=== PATIENT | female | born 1990 | race Caucasian/White ===

== ENCOUNTER 2016-08-09 05:54 | Inpatient (IN) | payer OTHER ==
[2016-08-09] VITALS (14 sets, daily range): BP systolic 103–132; BP diastolic 53–63; PULSE 83–142; RESP 16–22; TEMP 98.3–98.9; O2SAT 97–100
[~2016-08-09] VITALS: Ht 172.7 cm; Wt 61.7 kg
[2016-08-09] MEDS ORDERED: SODIUM CHLOR 0.9% 1000 ML INJ 1,000 ML IV SCH (06:04)
[2016-08-09] MEDS ORDERED: SODIUM BICARBONATE 8.4% SOLN 50 MEQ/50 ML VIAL IV PRN ×2 (06:15)
[2016-08-09] MEDS ORDERED: SODIUM PHOSPHATE INJ 15 MMOL in SODIUM CHLORIDE 0.9% INJ 100 ML IV PRN (06:15)
[2016-08-09] MEDS ORDERED: INSULIN REGULAR (IV INFUSION) 100 UNITS in SODIUM CHLORIDE 0.9% INJ 99 ML IV SCH (06:15)
[2016-08-09] MEDS ORDERED: POTASSIUM CHLOR 20 MEQ PREMIX 100 ML IV PRN ×6 (06:15→09:45)
[2016-08-09] MEDS ORDERED: ONDANSETRON HCL 4 MG/2 ML VIAL ONE (06:21)
[2016-08-09] MEDS: SODIUM CHLOR 0.9% 1000 ML INJ 1,000 ML IV SCH ×2 (06:27→15:26)
[2016-08-09 07:18] LABS: BLOOD GAS VENOUS BASE EXCESS -21.8 mmol/L (-2-2); BLOOD GAS VENOUS HCO3 6 mmol/L (22-26); BLOOD GAS VENOUS O2 CONTENT 13.8 Vol % (9.0-17.0); BLOOD GAS VENOUS O2 HGB SAT 80 % (70-76); BLOOD GAS VENOUS PCO2 21 mmHg (44-48); BLOOD GAS VENOUS PO2 59 mmHg (35-40); TEMP CORR TO 98.6
[2016-08-09 07:19] LABS: CRITICAL VALUE YES; DRAW SITE CL; OXYGEN DEVICE RA; STAT YES
--- NOTE | 2016-08-09 07:38 | RADRPT ---
EXAM DATE/TIME: 08/09/2016 07:06 [place] COMPARISON: No previous studies available for comparison. INDICATIONS : Chest pain. MEDICAL HISTORY : Diabetes mellitus type II. asthma SURGICAL HISTORY : None. ENCOUNTER: Initial ACUITY: 1 day PAIN SCORE: 2/10 LOCATION: Bilateral chest FINDINGS: Single AP view of the chest. Right IJ central venous catheter is in place with the tip in the region of the mid SVC. The lungs are clear. Cardiomediastinal silhouette within normal limits. No evidence o f pleural effusion or pneumothorax. CONCLUSION: No acute cardiopulmonary disease identified. Carlos Mccarthy MD on August 09, 2016 at 7:35 Board Certified Radiologist. This report was verified electronically.
[2016-08-09 07:50] LABS: ALKALINE PHOSPHATASE 68 U/L (45-117); ALT (GPT) 20 U/L (10-53); ANION GAP 22 MEQ/L (5-15); AST (GOT) 9 U/L (15-37); BETA-HYDROXYBUTYRATE 7.19 MMOL/L (0.00-0.39); BICARBONATE 7.3 MEQ/L (21.0-32.0); BLOOD UREA NITROGEN 23 MG/DL (7-18); CHLORIDE 110 MEQ/L (98-107); GLOMERULAR FILTRATION RATE 75 ML/MIN (>89); MAGNESIUM 2.1 MG/DL (1.5-2.5); POTASSIUM 4.9 MEQ/L (3.5-5.1); SODIUM (NA) 139 MEQ/L (136-145); TOTAL BILIRUBIN ADULT 0.7 MG/DL (0.2-1.0)
--- NOTE | 2016-08-09 08:04 | PD ---
HPI Chief Complaint: Diabetic Time Seen by Provider: 07:36 Travel History International Travel<30 days: No Contact w/Intl Traveler<30days: No Traveled to known affect area: No History of Present Illness HPI Patient 25-year-old insulin-dependent diabetic presents emergency Department with aching all over her body as well as dehydration. Patient states it feels just like every other time she's been in DKA. Patient states that she was actually just released from another institution in DKA. Patient states she has had problems with her insulin pump recently and has been malfunctioning. She states she is in between endocrinologists right now. She states the symptoms started very abruptly at about 1:00 this morning. She denies any fevers chest pain abdominal pain vaginal bleeding vaginal discharge rash cough or congestion. PFSH Past Medical History Diabetes: Yes Patient Takes Glucophage: No Respiratory: Yes (ASTHMA) Tetanus Vaccination: > 5 Years ?: Not LMP: 02/2016..depo : 1 Para: 1 Past Surgical History Section: Yes Social History Alcohol Use: Yes (rarely) Tobacco Use: No Substance Use: No Allergies-Medications (Allergen,Severity, Reaction): Coded Allergies: No Known Allergies (Unverified , 08/09/16) Reported Meds & Prescriptions Reported Meds & Active Scripts Active Review of Systems Except as stated in HPI: all other systems reviewed are Neg Physical Exam Narrative GENERAL: Well-developed, thin, muñoz and ashen appears quite dehydrated. SKIN: Focused skin assessment warm/dry. Decreased skin turgor. HEAD: Atraumatic. Normocephalic. EYES: Pupils equal and round. No scleral icterus. No injection or drainage. ENT: No nasal bleeding or discharge. Mucous membranes pink and dry.. NECK: Trachea midline. No JVD. CARDIOVASCULAR: Tachycardia with regular rhythm.. No murmur appreciated. RESPIRATORY: No accessory muscle use. Clear to auscultation. Breath sounds equal bilaterally. GASTROINTESTINAL: Abdomen soft, non-tender, nondistended. Hepatic and splenic margins not palpable. MUSCULOSKELETAL: No obvious deformities. No clubbing. No cyanosis. No edema. NEUROLOGICAL: Awake and alert. No obvious cranial nerve deficits. Motor grossly within normal limits. Normal speech. PSYCHIATRIC: Appropriate mood and affect; insight and judgment normal. Data Data Last Documented VS Vital Signs Date Time Temp Pulse Resp B/P Pulse Ox O2 Delivery O2 Flow Rate FiO2 08/09/16 07:30 111 125/57 100 Room Air 08/09/16 05:57 98.9 22 Orders Assembly Detailer / Telemetry [email or web address].[id number] (08/09/16 06:04) ^ Insert Iv (08/09/16 06:04) Diet Npo (08/09/16 Breakfast) Lipase (08/09/16 06:04) Complete Blood Count With Diff (08/09/16 06:04) Comprehensive Metabolic Panel (08/09/16 06:04) Magnesium (Mg) (08/09/16 06:04) Phosphorus (Po4) (08/09/16 06:04) Beta Hydroxybutyrate (Acetone) (08/09/16 06:04) Sodium Chlor 0.9% 1000 Ml Inj (Ns 1000 M (08/09/16 06:04) Sodium Chlor 0.9% 1000 Ml Inj (Ns 1000 M (08/09/16 06:04) Dext 5%-Nacl 0.9% 1000 Ml Inj (D5w-Ns 10 (08/09/16 06:04) Insulin Regular (Iv Infusion) (Novolin R (08/09/16 06:15) Potassium Chlor 20 Meq Premix (Kcl 20 Me (08/09/16 06:15) Potassium Chlor 20 Meq Premix (Kcl 20 Me (08/09/16 06:15) Potassium Chlor 20 Meq Premix (Kcl 20 Me (08/09/16 06:15) Potassium Chlor 20 Meq Premix (Kcl 20 Me (08/09/16 06:15) Sodium Bicarbonate 8.4% Inj (Sodium Bica (08/09/16 06:15) Sodium Bicarbonate 8.4% Inj (Sodium Bica (08/09/16 06:15) Sodium Phosphate Inj (Sodium Phosphate I (08/09/16 06:15) Hemoglobin (Hgb) A1c (08/09/16 06:04) Urinalysis - C+S If Indicated (08/09/16 06:04) Basic Metabolic Panel (Bmp) (08/09/16 11:04) Basic Metabolic Panel (Bmp) (08/09/16 17:04) Basic Metabolic Panel (Bmp) (08/09/16 23:04) Basic Metabolic Panel (Bmp) (08/10/16 05:04) Magnesium (Mg) (08/09/16 11:04) Magnesium (Mg) (08/09/16 17:04) Magnesium (Mg) (08/09/16 23:04) Magnesium (Mg) (08/10/16 05:04) Phosphorus (Po4) (08/09/16 11:04) Phosphorus (Po4) (08/09/16 17:04) Phosphorus (Po4) (08/09/16 23:04) Phosphorus (Po4) (08/10/16 05:04) Beta Hydroxybutyrate (Acetone) (08/09/16 17:04) Beta Hydroxybutyrate (Acetone) (08/10/16 05:04) Chest, Single Ap (08/09/16 ) Ondansetron Inj (Zofran Inj) (08/09/16 06:21) Blood Culture (08/09/16 07:05) Lactic Acid (08/09/16 07:05) Blood Gas Venous (Vbg) (08/09/16 07:08) Labs Laboratory Tests Test 08/09/16 08/09/16 06:55 07:08 Sodium Level 139 MEQ/L Potassium Level 4.9 MEQ/L Chloride Level 110 MEQ/L Carbon Dioxide Level 7.3 MEQ/L Anion Gap 22 MEQ/L Blood Urea Nitrogen 23 MG/DL Creatinine 0.93 MG/DL Estimat Glomerular Filtration 75 ML/MIN Rate Random Glucose 470 MG/DL Calcium Level 8.6 MG/DL Phosphorus Level 4.3 MG/DL Magnesium Level 2.1 MG/DL Total Bilirubin 0.7 MG/DL Aspartate Amino Transf 9 U/L (AST/SGOT) Alanine Aminotransferase 20 U/L (ALT/SGPT) Alkaline Phosphatase 68 U/L Total Protein 6.6 GM/DL Albumin 4.0 GM/DL Lipase 61 U/L B-Hydroxybutyrate 7.19 MMOL/L Blood Gas Puncture Site CL Blood Gas Patient Temperature 98.6 Venous Blood pH 7.10 Venous Blood Partial Pressure 21 mmHg CO2 Venous Blood Partial Pressure 59 mmHg O2 Venous Blood HCO3 6 mmol/L Venous Blood Oxygen Saturation 80 % Venous Blood Oxygen Content 13.8 Vol % Venous Blood Base Excess -21.8 mmol/L Oxygen Delivery Device RA FONTANA Medical Decision Making Medical Screen Exam Complete: Yes Emergency Medical Condition: Yes Differential Diagnosis DKA, electrolyte abnormality, dehydration, infection unlikely, Narrative Course Patient roomed in the emergency department, IV axis is gravely difficult as the patient is extremely dehydrated. An ultrasound-guided 20-gauge was started and the left before meals by me. No further axis was able to be obtained including EJ. Given the patient's ill appearance, she was verbally consented for a right IJ. This was placed by me. This was a difficult placement secondary to the patient's dehydration. 2 L normal saline bolus is in progress to the left before meals as IJ is started. ABG was obtained which shows a pH is 7.0 with a bicarbonate of 6. I have a strong suspicion for DKA in this patient. There is no history suggestive secondary cause other than insulin withdrawal. She will ultimately be admitted to the hospital. The remainder of her labs are pending at this time. The DKA protocol have been ordered. Patient was discussed with Dr. Sebas Diez at 07 100 shift change to follow-up labs and disposition properly. Diagnosis Primary Impression: DKA (diabetic ketoacidoses) Qualified Code: E10.10 - Diabetic ketoacidosis without coma associated with type 1 diabetes mellitus Admitting Information Admitting Physician Requests: Admit Condition: Critical Fahad Smith MD Aug 09, 2016 08:04
[2016-08-09 08:14] LABS: AUTOMATED NEUTROPHIL # 24.7 TH/MM3 (1.8-7.7); BASOPHIL # 0.1 TH/MM3 (0-0.2); BASOPHIL % 0.3 % (0.0-2.0); HEMATOCRIT 39.4 % (35.0-46.0); HEMO FLAGS DIFF FINAL; LYMPHOCYTE # 1.1 TH/MM3 (1.0-4.8); MEAN CELL VOLUME 91.5 FL (80.0-100.0); MEAN CORPUSCULAR HEMOGLOBIN 30.2 PG (27.0-34.0); MONO % 5.2 % (0.0-8.0); NEUT % 90.5 % (16.0-70.0); PLATELET COUNT 331 TH/MM3 (150-450); RED CELL DISTRIBUTION WIDTH 13.3 % (11.6-17.2); WHITE BLOOD COUNT 27.3 TH/MM3 (4.0-11.0)
[2016-08-09] MEDS ORDERED: INSULIN HUMAN REGULAR 1,000 UNITS/10 ML VIAL IV PUSH ONE (08:30)
--- NOTE | 2016-08-09 08:52 | PD ---
Physical Exam Date Seen by Provider: Aug 09, 2016 Time Seen by Provider: 07:30 Narrative She was signed out to me at [address] Smith. We are waiting laboratory tests. The patient is a known instrumented diabetic and presents in diabetic ketoacidosis. Protocol was initiated by Dr. Smith. We're awaiting laboratory tests. White blood cell count comes back at 27,000. Carbon dioxide was 7.3. Blood gas showed a pH 7.06. Anion gap was 22. I did write for the initial insolent bolus of 6 units I V times one dose. Case was discussed with Dr. Charles Treadwell, on-call service center supervisor, who will admit the patient under his service. Data Data Last Documented VS Vital Signs Date Time Temp Pulse Resp B/P Pulse Ox O2 Delivery O2 Flow Rate FiO2 08/09/16 07:30 111 125/57 100 Room Air 08/09/16 05:57 98.9 22 Orders Agricultural Equipment Test Engineer / Telemetry [email or web address].Q8H (08/09/16 06:04) ^ Insert Iv (08/09/16 06:04) Diet Npo (08/09/16 Breakfast) Lipase (08/09/16 06:04) Complete Blood Count With Diff (08/09/16 06:04) Comprehensive Metabolic Panel (08/09/16 06:04) Magnesium (Mg) (08/09/16 06:04) Phosphorus (Po4) (08/09/16 06:04) Beta Hydroxybutyrate (Acetone) (08/09/16 06:04) Sodium Chlor 0.9% 1000 Ml Inj (Ns 1000 M (08/09/16 06:04) Sodium Chlor 0.9% 1000 Ml Inj (Ns 1000 M (08/09/16 06:04) Dext 5%-Nacl 0.9% 1000 Ml Inj (D5w-Ns 10 (08/09/16 06:04) Insulin Regular (Iv Infusion) (Novolin R (08/09/16 06:15) Potassium Chlor 20 Meq Premix (Kcl 20 Me (08/09/16 06:15) Potassium Chlor 20 Meq Premix (Kcl 20 Me (08/09/16 06:15) Potassium Chlor 20 Meq Premix (Kcl 20 Me (08/09/16 06:15) Potassium Chlor 20 Meq Premix (Kcl 20 Me (08/09/16 06:15) Sodium Bicarbonate 8.4% Inj (Sodium Bica (08/09/16 06:15) Sodium Bicarbonate 8.4% Inj (Sodium Bica (08/09/16 06:15) Sodium Phosphate Inj (Sodium Phosphate I (08/09/16 06:15) Hemoglobin (Hgb) A1c (08/09/16 06:04) Urinalysis - C+S If Indicated (08/09/16 06:04) Basic Metabolic Panel (Bmp) (08/09/16 11:04) Basic Metabolic Panel (Bmp) (08/09/16 17:04) Basic Metabolic Panel (Bmp) (08/09/16 23:04) Basic Metabolic Panel (Bmp) (08/10/16 05:04) Magnesium (Mg) (08/09/16 11:04) Magnesium (Mg) (08/09/16 17:04) Magnesium (Mg) (08/09/16 23:04) Magnesium (Mg) (08/10/16 05:04) Phosphorus (Po4) (08/09/16 11:04) Phosphorus (Po4) (08/09/16 17:04) Phosphorus (Po4) (08/09/16 23:04) Phosphorus (Po4) (08/10/16 05:04) Beta Hydroxybutyrate (Acetone) (08/09/16 17:04) Beta Hydroxybutyrate (Acetone) (08/10/16 05:04) Chest, Single Ap (08/09/16 ) Ondansetron Inj (Zofran Inj) (08/09/16 06:21) Blood Culture (08/09/16 07:05) Lactic Acid (08/09/16 07:05) Blood Gas Venous (Vbg) (08/09/16 07:08) Insulin Human Regular Inj (Novolin R Inj (08/09/16 08:30) Labs Laboratory Tests Test 08/09/16 08/09/16 08/09/16 08/09/16 06:55 07:08 07:20 07:55 Sodium Level 139 MEQ/L Potassium Level 4.9 MEQ/L Chloride Level 110 MEQ/L Carbon Dioxide Level 7.3 MEQ/L Anion Gap 22 MEQ/L Blood Urea Nitrogen 23 MG/DL Creatinine 0.93 MG/DL Estimat Glomerular Filtration 75 ML/MIN Rate Random Glucose 470 MG/DL Calcium Level 8.6 MG/DL Phosphorus Level 4.3 MG/DL Magnesium Level 2.1 MG/DL Total Bilirubin 0.7 MG/DL Aspartate Amino Transf 9 U/L (AST/SGOT) Alanine Aminotransferase 20 U/L (ALT/SGPT) Alkaline Phosphatase 68 U/L Total Protein 6.6 GM/DL Albumin 4.0 GM/DL Lipase 61 U/L B-Hydroxybutyrate 7.19 MMOL/L Blood Gas Puncture Site CL Blood Gas Patient Temperature 98.6 Venous Blood pH 7.10 Venous Blood Partial Pressure 21 mmHg CO2 Venous Blood Partial Pressure 59 mmHg O2 Venous Blood HCO3 6 mmol/L Venous Blood Oxygen Saturation 80 % Venous Blood Oxygen Content 13.8 Vol % Venous Blood Base Excess -21.8 mmol/L Oxygen Delivery Device RA Lactic Acid Level 3.8 mmol/L White Blood Count 27.3 TH/MM3 Red Blood Count 4.30 MIL/MM3 Hemoglobin 13.0 GM/DL Hematocrit 39.4 % Mean Corpuscular Volume 91.5 FL Mean Corpuscular Hemoglobin 30.2 PG Mean Corpuscular Hemoglobin 33.0 % Concent Red Cell Distribution Width 13.3 % Platelet Count 331 TH/MM3 Mean Platelet Volume 8.7 FL Neutrophils (%) (Auto) 90.5 % Lymphocytes (%) (Auto) 4.0 % Monocytes (%) (Auto) 5.2 % Eosinophils (%) (Auto) 0.0 % Basophils (%) (Auto) 0.3 % Neutrophils # (Auto) 24.7 TH/MM3 Lymphocytes # (Auto) 1.1 TH/MM3 Monocytes # (Auto) 1.4 TH/MM3 Eosinophils # (Auto) 0.0 TH/MM3 Basophils # (Auto) 0.1 TH/MM3 CBC Comment DIFF FINAL Differential Comment MDM Medical Record Reviewed: Yes Supervised Visit with GRISEL: No Narrative Course 25-year-old type I diabetic, presents in diabetic acidosis. The patient's laboratories test confirmed. Lactic acid was 3.6. He had some 7.06. The patient has had DKA protocol initiated. Case discussed with Dr. Charles Treadwell, who will be gracious enough to admit the patient to the intensive care unit. Diagnosis Primary Impression: DKA (diabetic ketoacidoses) Qualified Code: E10.10 - Diabetic ketoacidosis without coma associated with type 1 diabetes mellitus Admitting Information Admitting Physician Requests: Admit Condition: Critical DiezSebas MD Aug 09, 2016 08:52
[2016-08-09 09:15] LABS: BLOOD, URINE NEG (NEG); COMMENT (UR) CULT NOT INDICATED; CULTURE IF INDICATED CULT NOT INDICATED; GLUCOSE,URINE 1000 mg/dL (NEG); KETONE, URINE 150 mg/dL (NEG); MUCUS URINE FEW /lpf (OCC); NITRITE,URINE NEG (NEG); URINE COLOR LIGHT-YELLOW (YELLW/STRAW)
--- NOTE | 2016-08-09 09:40 | HHI.HP ---
HPI Service Critical Care Medicine Primary Care Physician No Primary Care Physician Admission Diagnosis Diabetic Ketoacidosis Diagnosis: Chief Complaint: fatigue Travel History International Travel<30 Days: No Contact w/Intl Traveler <30 Da: No Traveled to Known Affected Are: No History of Present Illness This is a 25yF with T1DM who recently changed insurance, so she has limited access to medical care at this point. Recently, her insulin pump stopped working properly and there is a part that is kinked. She was recently admitted to [facility] from 07/31 - 08/04 with DKA secondary to her insulin pump malfunction. She is normally a very well-controlled diabetic and does not have frequent episodes of DKA. She has no recent history of infections, cough, fever, chills, nausea, vomiting, diarrhea, shortness of breath, or chest pain. She presents with fatigue, a pH 7.1, ketonuria, ketonemia, elevated anion gap consistent with recurrent DKA. She was started on DKA protocol including K replacement, ivf, insulin drip, dextrose. Critical Care medicine is consulted to evaluate and manage her DKA and acidosis. Review of Systems Constitutional: COMPLAINS OF: Fatigue, DENIES: Diaphoretic episodes, Fever, Chills Endocrine: COMPLAINS OF: Polydipsia, Polyuria, DENIES: Heat/cold intolerance Respiratory: DENIES: Cough, Wheezing, Hemoptysis, Sputum production, Shortness of breath Cardiovascular: DENIES: Chest pain, Palpitations, Dyspnea on Exertion, Lower Extremity Edema Gastrointestinal: DENIES: Abdominal pain, Constipation, Diarrhea, Nausea, Vomiting Genitourinary: COMPLAINS OF: Urinary frequency Musculoskeletal: DENIES: Muscle aches Past Family Social History Allergies: Coded Allergies: No Known Allergies (Unverified , 08/09/16) Past Medical History Type I Diabetes Asthma Past Surgical History Prior delivery Reported Medications Insulin pump, currently malfunctioning Active Ordered Medications See MAR Family History reviewed and found to be noncontributory to her acute illness Social History rare etoh, denied tob, doa. Physical Exam Vital Signs Vital Signs Date Time Temp Pulse Resp B/P Pulse Ox O2 Delivery O2 Flow Rate FiO2 08/09/16 09:06 115 18 122/58 100 Room Air 08/09/16 07:30 111 125/57 100 Room Air 08/09/16 05:57 98.9 142 22 129/57 97 Room Air Physical Exam GENERAL: Young female, lying in bed, moderate distress. HEENT: Normocephalic. Atraumatic. Pupils equal, reactive, round, conjugate. Mucous membranes are moist. NECK: He is midline. No JVD. CHEST: Tachypneic. Mild distress. Clear to auscultation. CARDIOVASCULAR: Tachycardic rate, regular rhythm. No appreciable murmurs. ABDOMEN: Soft, nontender, nondistended. No guarding. MUSCULOSKELETAL: No peripheral edema. Distal pulses 2+. NEUROLOGICAL: RASS 0. CAM -. Follows commands in all 4 extremities. No gross focal motor or sensory deficits. Laboratory Laboratory Tests Test 08/09/16 08/09/16 08/09/16 08/09/16 06:55 07:08 07:20 07:55 Sodium Level 139 Potassium Level 4.9 Chloride Level 110 Carbon Dioxide Level 7.3 Anion Gap 22 Blood Urea Nitrogen 23 Creatinine 0.93 Estimat Glomerular Filtration 75 Rate Random Glucose 470 Calcium Level 8.6 Phosphorus Level 4.3 Magnesium Level 2.1 Total Bilirubin 0.7 Aspartate Amino Transf 9 (AST/SGOT) Alanine Aminotransferase 20 (ALT/SGPT) Alkaline Phosphatase 68 Total Protein 6.6 Albumin 4.0 Lipase 61 B-Hydroxybutyrate 7.19 Blood Gas Puncture Site CL Blood Gas Patient Temperature 98.6 Venous Blood pH 7.10 Venous Blood Partial Pressure 21 CO2 Venous Blood Partial Pressure 59 O2 Venous Blood HCO3 6 Venous Blood Oxygen Saturation 80 Venous Blood Oxygen Content 13.8 Venous Blood Base Excess -21.8 Oxygen Delivery Device RA Lactic Acid Level 3.8 White Blood Count 27.3 Red Blood Count 4.30 Hemoglobin 13.0 Hematocrit 39.4 Mean Corpuscular Volume 91.5 Mean Corpuscular Hemoglobin 30.2 Mean Corpuscular Hemoglobin 33.0 Concent Red Cell Distribution Width 13.3 Platelet Count 331 Mean Platelet Volume 8.7 Neutrophils (%) (Auto) 90.5 Lymphocytes (%) (Auto) 4.0 Monocytes (%) (Auto) 5.2 Eosinophils (%) (Auto) 0.0 Basophils (%) (Auto) 0.3 Neutrophils # (Auto) 24.7 Lymphocytes # (Auto) 1.1 Monocytes # (Auto) 1.4 Eosinophils # (Auto) 0.0 Basophils # (Auto) 0.1 CBC Comment DIFF FINAL Differential Comment Test 08/09/16 08:30 Urine Color LIGHT-YELLOW Urine Turbidity CLEAR Urine pH 5.0 Urine Specific [place] 1.023 Urine Protein TRACE Urine Glucose (UA) 1000 Urine Ketones 150 Urine Occult Blood NEG Urine Nitrite NEG Urine Bilirubin NEG Urine Urobilinogen LESS THAN 2.0 Urine Leukocyte Esterase NEG Urine Mucus FEW Microscopic Urinalysis Comment CULT NOT INDICATED Date/Time Procedure Status Source Growth 08/09/16 07:30 Aerobic Blood Culture Received Blood Line Pending 08/09/16 07:30 Anaerobic Blood Culture Received Blood Line Pending Result Diagram: 08/09/16 0755 08/09/16 0655 Imaging Last Impressions Chest X-Ray 08/09/16 0000 Signed Impressions: Service Date/Time: August 07:06 - CONCLUSION: No acute cardiopulmonary disease identified. Carlos Mccarthy MD Assessment and Plan Assessment and Plan Assessment: This is a 25yF with T1DM and recent insulin pump malfunction who presents with severe Diabetic Ketoacidosis, Severe anion-gap metabolic acidosis which is life-threatening with a pH of 7.1. She is critically ill at this time. we will start her on insulin drip, dextrose, potassium replacement, iv hydration. She also needs case management to help her get a solution to her insulin pump problem. Active Problems: Diabetic Ketoacidosis Severe anion-gap metabolic acidosis Hypokalemia Hyperglycemia Type 1 Diabetes Mellitus Plan: -- insulin drip -- q1h accuchecks -- dextrose -- potassium replacement -- serial bmp -- will plan to transition her to SQ insulin once gap has closed. -- advance diet as tolerated -- case management for assistance with insulin pump. -- SCDs, SQ -- admit to the ICU. This patient remains critically ill with one or more organ systems which are or may become a threat to life. I have spent in excess of 44 minutes discontinuously in the care and management of this patient. This time is exclusive of procedures, and includes, but is not limited to, evaluation of the patient, review of the medical record, discussions with family, consultants, nursing staff, or respiratory therapy, and documentation in the medical record. Santiago Mclean MD Aug 09, 2016 09:40
[2016-08-09] MEDS ORDERED: MAGNESIUM OXIDE 400 MG TAB PO PRN (09:45)
[2016-08-09] MEDS ORDERED: MAGNESIUM SULFATE INJ 4 GM in SODIUM CHLORIDE 0.9% INJ 92 ML IV PRN (09:45)
[2016-08-09] MEDS ORDERED: POTASSIUM CHLOR 40 MEQ PREMIX 100 ML IV PRN ×2 (09:45)
[2016-08-09] MEDS ORDERED: SODIUM PHOSPHATE INJ 30 MMOL in SODIUM CHLOR 0.9% 250 ML INJ 240 ML IV PRN (09:45)
[2016-08-09] MEDS ORDERED: POTASSIUM PHOSPHATE INJ 30 MMOL in SODIUM CHLOR 0.9% 250 ML INJ 250 ML IV PRN (09:45)
[2016-08-09] MEDS ORDERED: MAGNESIUM SULFATE INJ 2 GM in SODIUM CHLORIDE 0.9% INJ 96 ML IV PRN (09:45)
[2016-08-09] MEDS ORDERED: POTASSIUM PHOSPHATE MONOBASIC 500 MG TAB PO/TUBE PRN (09:45)
[2016-08-09] MEDS ORDERED: POTASSIUM PHOSPHATE MONOBASIC 500 MG TAB PO PRN (09:45)
[2016-08-09] MEDS: DEXT 5%-NACL 0.9% 1000 ML INJ 1,000 ML IV SCH ×2 (11:35→16:15)
[2016-08-09 14:12] LABS: BICARBONATE 12.9 MEQ/L (21.0-32.0); MAGNESIUM 1.9 MG/DL (1.5-2.5); POTASSIUM 4.6 MEQ/L (3.5-5.1)
[2016-08-09 19:22] LABS: ANION GAP 9 MEQ/L (5-15); BETA-HYDROXYBUTYRATE 0.23 MMOL/L (0.00-0.39); BICARBONATE 16.6 MEQ/L (21.0-32.0); BLOOD UREA NITROGEN 15 MG/DL (7-18); CHLORIDE 115 MEQ/L (98-107); GLOMERULAR FILTRATION RATE 83 ML/MIN (>89); MAGNESIUM 1.9 MG/DL (1.5-2.5); SODIUM (NA) 141 MEQ/L (136-145)
[2016-08-09] MEDS: INSULIN NovoLIN REGULAR SUPPLEMENTAL SCALE SQ SCH (20:00)
[2016-08-09] MEDS ORDERED: DEXTROSE 50% IN WATER 50 ML VIAL(D50) IV PUSH PRN (20:00)
[2016-08-09] MEDS: LACTATED RINGER'S 1000 ML INJ 1,000 ML IV SCH (20:00)
[2016-08-09] MEDS ORDERED: CHLORHEXIDINE GLUCONATE 2 % 1 PACK (2 CLOTHS)(extra cloths) TOPICAL PRN (22:45)
[2016-08-09] MEDS ORDERED: ONDANSETRON HCL 4 MG/2 ML VIAL IV PUSH PRN (22:45)
[2016-08-10] VITALS (15 sets, daily range): BP systolic 62–111; BP diastolic 54–62; PULSE 63–97; RESP 17–22; TEMP 98.3–99.7; O2SAT 98–100
[2016-08-10 01:17] LABS: MAGNESIUM 1.8 MG/DL (1.5-2.5); POTASSIUM 4.1 MEQ/L (3.5-5.1)
[2016-08-10] MEDS: INSULIN NovoLIN REGULAR SUPPLEMENTAL SCALE SQ SCH ×5 (04:00→13:51)
[2016-08-10] MEDS: LACTATED RINGER'S 1000 ML INJ 1,000 ML IV SCH ×2 (04:00→12:00)
[2016-08-10] MEDS ORDERED: CHLORHEXIDINE GLUCONATE 2 % 1 PACK (2 CLOTHS)(taper/protocol) TOPICAL SCH (04:00)
[2016-08-10 06:07] LABS: HEMATOCRIT 36.1 % (35.0-46.0); MEAN CELL VOLUME 88.1 FL (80.0-100.0); MEAN CORPUSCULAR HEMOGLOBIN 29.7 PG (27.0-34.0); MEAN CORPUSCULAR HGB CONC 33.7 % (32.0-36.0); PLATELET COUNT 285 TH/MM3 (150-450); RED CELL DISTRIBUTION WIDTH 13.1 % (11.6-17.2); REVIEW FLAG FINAL; WHITE BLOOD COUNT 13.2 TH/MM3 (4.0-11.0)
[2016-08-10 06:46] LABS: ANION GAP 18 MEQ/L (5-15); BETA-HYDROXYBUTYRATE 6.41 MMOL/L (0.00-0.39); BICARBONATE 10.3 MEQ/L (21.0-32.0); BLOOD UREA NITROGEN 14 MG/DL (7-18); CHLORIDE 109 MEQ/L (98-107); MAGNESIUM 1.7 MG/DL (1.5-2.5); SODIUM (NA) 137 MEQ/L (136-145)
[2016-08-10] MEDS ORDERED: INSULIN DETEMIR 100 UNITS/ML VIAL SQ SCH ×4 (09:00→21:00)
[2016-08-10] MEDS ORDERED: SODIUM BICARBONATE 8.4% INJ 50 MEQ/50 ML SYR IV PUSH ONE (09:00)
[2016-08-10] MEDS ORDERED: SODIUM CHLOR 0.9% 1000 ML INJ 1,000 ML IV ONE ×2 (09:00→14:00)
--- NOTE | 2016-08-10 09:12 | HHI.CCPN ---
Subjective Remarks/Hospital Course This is a 25yF with T1DM who recently changed insurance, so she has limited access to medical care at this point. Recently, her insulin pump stopped working properly and there is a part that is kinked. She was recently admitted to OSH from 07/31 - 08/04 with DKA secondary to her insulin pump malfunction. She is normally a very well-controlled diabetic and does not have frequent episodes of DKA. She has no recent history of infections, cough, fever, chills, nausea, vomiting, diarrhea, shortness of breath, or chest pain. She presents with fatigue, a pH 7.1, ketonuria, ketonemia, elevated anion gap consistent with recurrent DKA. She was started on DKA protocol including K replacement, ivf, insulin drip, dextrose. Critical Care medicine is consulted to evaluate and manage her DKA and acidosis. SUBJ 08/10/16: Patient remains slightly nauseated and on gap has reopened now 18 beta hydroxybutyrate increased to 6.4 after coming off the insulin drip. I have received the DKA protocol with restarting insulin infusion. We'll start long-acting insulin Levemir anticipating transition to sq soon Objective Vital Signs Date Time Temp Pulse Resp B/P Pulse Ox O2 Delivery O2 Flow Rate FiO2 08/10/16 06:00 96 08/10/16 03:00 98.5 18 103/54 98 08/09/16 15:35 Room Air 08/09/16 10:10 21 Intake and Output 08/09/16 08/09/16 08/10/16 08:00 16:00 00:00 Intake Total 3139 ml Output Total 750 ml Balance 2389 ml Result Diagram: 08/10/16 0540 08/10/16 0540 Imaging Last Impressions Chest X-Ray 08/09/16 0000 Signed Impressions: Service Date/Time: August 07:06 - CONCLUSION: No acute cardiopulmonary disease identified. Carlos Mccarthy MD Objective Remarks GENERAL: Young female, lying in bed, mild distress. HEENT: Normocephalic. Atraumatic. Pupils equal, reactive, round, conjugate. Mucous membranes are dry. NECK: Neck is midline. No JVD. CHEST: Tachypneic. Mild distress. Clear to auscultation. CARDIOVASCULAR: Tachycardic rate, regular rhythm. No appreciable murmurs. ABDOMEN: Soft, nontender, nondistended. No guarding. MUSCULOSKELETAL: No peripheral edema. Distal pulses 2+. NEUROLOGICAL: Follows commands in all 4 extremities. No gross focal motor or sensory deficits. A/P Assessment and Plan Assessment: This is a 25yF with T1DM and recent insulin pump malfunction who presents with severe Diabetic Ketoacidosis, Severe anion-gap metabolic acidosis which is life-threatening with a pH of 7.1. She is critically ill at this time. we will start her on insulin drip, dextrose, potassium replacement, iv hydration. She also needs case management to help her get a solution to her insulin pump problem. Active Problems: Diabetic Ketoacidosis Severe anion-gap metabolic acidosis Hypokalemia Hyperglycemia Type 1 Diabetes Mellitus Plan: -- Resume insulin drip due to reopening off anion gap and patient in DKA again ( AG 18, beta hydroxybutyrate 6.4) -- Start Levemir 5 U q12 in anticipation of transition to s/q again once AG closes -- q1h accuchecks, electrolyte replacement and serial BMPs per protocol -- Keep NPo until gap closes -- case management for assistance with insulin pump. -- SCDs, SQH -- Continue ICU care for now. This patient remains critically ill with one or more organ systems which are or may become a threat to life. I have spent in excess of 35 minutes discontinuously in the care and management of this patient. This time is exclusive of procedures, and includes, but is not limited to, evaluation of the patient, review of the medical record, discussions with family, consultants, nursing staff, or respiratory therapy, and documentation in the medical record. Mary Kay Parmar MD Aug 10, 2016 09:12
[2016-08-10] MEDS ORDERED: NS BOLUS IV ONE (09:15)
[2016-08-10] MEDS ORDERED: INSULIN REGULAR 100 UNITS/NS 100 ML (DKA Protocol) IV SCH ×2 (09:15)
[2016-08-10] MEDS ORDERED: INSULIN HUMAN (NovoLIN) REGULAR Bolus IV PUSH ONE (09:15)
[2016-08-10] MEDS ORDERED: NS IV @ 250 MLS/HR IV SCH (09:15)
[2016-08-10] MEDS ORDERED: Discontinue All Previous Diabetic Medications ONE (09:15)
[2016-08-10] MEDS ORDERED: D5 NS IV @ 200 MLS/HR - Start after Glucose less than 250 IV SCH (09:15)
[2016-08-10] MEDS: ACETAMINOPHEN 325 MG TAB PO PRN (09:49)
[2016-08-10 10:16] LABS: ALKALINE PHOSPHATASE 53 U/L (45-117); ALT (GPT) 15 U/L (10-53); ANION GAP 11 MEQ/L (5-15); AST (GOT) 6 U/L (15-37); BICARBONATE 15.7 MEQ/L (21.0-32.0); BLOOD UREA NITROGEN 12 MG/DL (7-18); CHLORIDE 114 MEQ/L (98-107); GLOMERULAR FILTRATION RATE 94 ML/MIN (>89); POTASSIUM 3.6 MEQ/L (3.5-5.1); SODIUM (NA) 141 MEQ/L (136-145); TOTAL BILIRUBIN ADULT 0.5 MG/DL (0.2-1.0)
[2016-08-10] MEDS ORDERED: VANCOMYCIN INJ 1,000 MG in SODIUM CHLOR 0.9% 250 ML INJ 250 ML IV ONE (11:15)
[2016-08-10 12:53] LABS: BETA-HYDROXYBUTYRATE 3.27 MMOL/L (0.00-0.39); BICARBONATE 16.6 MEQ/L (21.0-32.0); CALCIUM-PROTEIN CORRECTED 8.3 MG/DL (8.5-10.1); POTASSIUM 3.4 MEQ/L (3.5-5.1); TOTAL BILIRUBIN ADULT 0.6 MG/DL (0.2-1.0)
[2016-08-10] MEDS: INSULIN ASPART SUPPLEMENTAL SCALE SQ SCH ×5 (15:00→23:00)
[2016-08-10] MEDS: SODIUM CHLOR 0.9% 1000 ML INJ 1,000 ML IV SCH ×2 (15:14→21:22)
--- NOTE | 2016-08-10 16:04 | EC ---
Study Study Date:08/10/2016 STUDY CONCLUSIONS SUMMARY - Left ventricle: The cavity size was normal. Wall thickness was normal. Systolic function was normal. The estimated ejection fraction was in the range of 55% to 60%. Wall motion was normal; there were no regional wall motion abnormalities. - Pulmonary arteries: PA peak pressure: 36mm Hg (S). If LV function is below 40, please consider prescribing an ACEI or ARB or document rationale for non-use. PROCEDURE DATA STUDY STATUS: Elective. Procedure: Transthoracic echocardiography. Image quality was good. Scanning was performed from the parasternal, apical, and subcostal acoustic windows. Study completion: The patient tolerated the procedure well. Transthoracic echocardiography. M-mode, complete 2D, complete spectral Doppler, and color Doppler. Patient status: Inpatient. CARDIAC ANATOMY LEFT VENTRICLE: The cavity size was normal. Wall thickness was normal. Systolic function was normal. The estimated ejection fraction was in the range of 55% to 60%. Wall motion was normal; there were no regional wall motion abnormalities. AORTIC VALVE: Trileaflet; normal thickness leaflets. Doppler: Transvalvular velocity was within the normal range. There was no stenosis. No regurgitation. AORTA: Aortic root: The aortic root was normal in size. MITRAL VALVE: Structurally normal valve. Doppler: Transvalvular velocity was within the normal range. There was no evidence for stenosis. No regurgitation. Peak gradient: 5mm Hg (D). LEFT ATRIUM: The atrium was normal in size. RIGHT VENTRICLE: The cavity size was normal. Wall thickness was normal. PULMONIC VALVE: Doppler: Transvalvular velocity was within the normal range. There was no evidence for stenosis. No regurgitation. TRICUSPID VALVE: Structurally normal valve. Doppler: Transvalvular velocity was within the normal range. No regurgitation. PULMONARY ARTERY: The main pulmonary artery was normal-sized. Systolic pressure was within the normal range. RIGHT ATRIUM: The atrium was normal in size. PERICARDIUM: There was no pericardial effusion. SYSTEMIC VEINS: Inferior vena cava: The vessel was normal in size. BASIC MEASUREMENTS ADULT NORMAL Left ventricle LV internal dimension, ED, chordal level, 45.1 mm 43-52 PLAX LV internal dimension, ES, chordal level, 37 mm 23-38 PLAX Fractional shortening, chordal level, PLAX *18 % >29 LV posterior wall thickness, ED 8.13 mm IVS/LVPW ratio, ED 1.21 <1.3 Ventricular septum Septal thickness, ED 9.84 mm Aortic valve Leaflet separation 20 mm 15-26 Right ventricle RV internal dimension, ED, PLAX 19.5 mm 19-38 BASIC MEASUREMENTS ADULT NORMAL Aortic valve Leaflet separation 20 mm 15-26 Aorta Root diameter, ED 30 mm 20-37 Left atrium Anterior-posterior dimension, ES 26 mm 19-40 LA/aortic root ratio 0.87 DOPPLER MEASUREMENTS ADULT NORMAL Main pulmonary artery Pressure, S *36 mm Hg =30 Mitral valve Peak E-wave velocity 114 cm/s Peak A-wave velocity 52.3 cm/s Peak gradient, D 5 mm Hg Peak E/A ratio 2.2 Tricuspid valve Regurgitant peak velocity 254 cm/s Peak RV-RA gradient, S 26 mm Hg Maximal regurgitant velocity 254 cm/s Systemic veins Estimated CVP 10 mm Hg Right ventricle RV pressure, S *36 mm Hg <30 LEGEND: Mean values are shown as u=mean value. Asterisk (*) avery values outside specified normal range. Prepared and signed by Adan Edouard [id number]
[2016-08-10 16:17] LABS: HEMOGLOBIN A1a 1.2 %; HEMOGLOBIN A1b 0.8 %; HEMOGLOBIN Ao 78.9 %; HEMOGLOBIN F 1.5 %; HEMOGLOBIN LA1C 2.6 %
[2016-08-10 17:58] LABS: BICARBONATE 19.3 MEQ/L (21.0-32.0); CALCIUM-PROTEIN CORRECTED 8.6 MG/DL (8.5-10.1); MAGNESIUM 1.5 MG/DL (1.5-2.5); POTASSIUM 3.4 MEQ/L (3.5-5.1); TOTAL BILIRUBIN ADULT 0.3 MG/DL (0.2-1.0)
[2016-08-10] MEDS ORDERED: POTASSIUM PHOSPHATE MONOBASIC 500 MG TAB PO/TUBE PRN (19:15)
[2016-08-10] MEDS ORDERED: POTASSIUM PHOSPHATE MONOBASIC 500 MG TAB PO PRN (19:15)
[2016-08-10] MEDS ORDERED: POTASSIUM PHOSPHATE INJ 30 MMOL in SODIUM CHLOR 0.9% 250 ML INJ 250 ML IV PRN (19:15)
[2016-08-10] MEDS ORDERED: MAGNESIUM SULFATE INJ 4 GM in SODIUM CHLORIDE 0.9% INJ 92 ML IV PRN (19:15)
[2016-08-10] MEDS ORDERED: MAGNESIUM SULFATE INJ 2 GM in SODIUM CHLORIDE 0.9% INJ 96 ML IV PRN (19:15)
[2016-08-10] MEDS ORDERED: POTASSIUM CHLOR 20 MEQ PREMIX 100 ML IV PRN ×2 (19:15)
[2016-08-10] MEDS ORDERED: POTASSIUM CHLOR 40 MEQ PREMIX 100 ML IV PRN ×2 (19:15)
[2016-08-10] MEDS ORDERED: SODIUM PHOSPHATE INJ 30 MMOL in SODIUM CHLOR 0.9% 250 ML INJ 240 ML IV PRN (19:15)
[2016-08-10] MEDS ORDERED: MAGNESIUM OXIDE 400 MG TAB PO PRN (19:15)
[2016-08-11] VITALS (10 sets, daily range): BP systolic 113–123; BP diastolic 68–76; PULSE 44–79; RESP 19–28; TEMP 98.5–98.8; O2SAT 98
[2016-08-11] MEDS: INSULIN ASPART SUPPLEMENTAL SCALE SQ SCH ×6 (01:00→16:00)
[2016-08-11 04:47] LABS: BICARBONATE 20.9 MEQ/L (21.0-32.0); MAGNESIUM 1.7 MG/DL (1.5-2.5); POTASSIUM 3.4 MEQ/L (3.5-5.1)
[2016-08-11 04:53] LABS: MEAN CELL VOLUME 85.6 FL (80.0-100.0); MEAN CORPUSCULAR HEMOGLOBIN 29.5 PG (27.0-34.0); MEAN CORPUSCULAR HGB CONC 34.5 % (32.0-36.0); PLATELET COUNT 191 TH/MM3 (150-450); RED BLOOD COUNT 3.75 MIL/MM3 (4.00-5.30); RED CELL DISTRIBUTION WIDTH 12.8 % (11.6-17.2); REVIEW FLAG FINAL
[2016-08-11] MEDS ORDERED: SODIUM CHLOR 0.45% 1000 ML INJ 1,000 ML IV SCH (06:30)
[2016-08-11 07:33] LABS: FREE T3 2.37 PG/ML (2.18-3.98); FREE T4 1.12 NG/DL (0.76-1.46)
--- NOTE | 2016-08-11 07:49 | HHI.CCPN ---
Subjective Remarks/Hospital Course This is a 25yF with T1DM who recently changed insurance, so she has limited access to medical care at this point. Recently, her insulin pump stopped working properly and there is a part that is kinked. She was recently admitted to OSH from 07/31 - 08/04 with DKA secondary to her insulin pump malfunction. She is normally a very well-controlled diabetic and does not have frequent episodes of DKA. She has no recent history of infections, cough, fever, chills, nausea, vomiting, diarrhea, shortness of breath, or chest pain. She presents with fatigue, a pH 7.1, ketonuria, ketonemia, elevated anion gap consistent with recurrent DKA. She was started on DKA protocol including K replacement, ivf, insulin drip, dextrose. Critical Care medicine is consulted to evaluate and manage her DKA and acidosis. SUBJ 08/10/16: Patient remains slightly nauseated and on gap has reopened now 18 beta hydroxybutyrate increased to 6.4 after coming off the insulin drip. I have received the DKA protocol with restarting insulin infusion. We'll start long-acting insulin Levemir anticipating transition to sq soon 08/11/16: Off DKA protocol, On Levemir and sliding scale now. Became symptomatically hypoglycemic today, with blood sugar 65. Now symptoms resolved. i have reduced evening Levemir to 5. Blood culture staph epi. 2-D echo no valvular abnormalities noted. Still has grade 2-3 murmur at the apex Objective Vital Signs Date Time Temp Pulse Resp B/P Pulse Ox O2 Delivery O2 Flow Rate FiO2 08/11/16 06:00 56 08/11/16 04:00 98.7 19 113/74 08/11/16 00:00 98 08/10/16 21:55 21 08/09/16 15:35 Room Air Intake and Output 08/10/16 08/10/16 08/11/16 08:00 16:00 00:00 Intake Total 1608 ml 3261 ml 3017 ml Output Total 700 ml 0 ml 1185 ml Balance 908 ml 3261 ml 1832 ml Result Diagram: 08/11/16 0345 08/11/16 0345 Imaging Last Impressions Chest X-Ray 08/09/16 0000 Signed Impressions: Service Date/Time: August 07:06 - CONCLUSION: No acute cardiopulmonary disease identified. Carlos Mccarthy MD Objective Remarks GENERAL: Young female, lying in bed, no distress. HEENT: Normocephalic. Atraumatic. Pupils equal, reactive, round, conjugate. Mucous membranes are dry. NECK: Neck is midline. No JVD. CHEST: Tachypneic. Mild distress. Clear to auscultation. CARDIOVASCULAR: Tachycardic rate, regular rhythm. Grade 2-3 murmur heard predominantly at the apex and left sternal border ABDOMEN: Soft, nontender, nondistended. No guarding. MUSCULOSKELETAL: No peripheral edema. Distal pulses 2+. NEUROLOGICAL: Follows commands in all 4 extremities. No gross focal motor or sensory deficits. A/P Assessment and Plan Assessment: This is a 25yF with T1DM and recent insulin pump malfunction who presents with severe Diabetic Ketoacidosis, Severe anion-gap metabolic acidosis which is life-threatening with a pH of 7.1. Now DKA has resolved and gap has closed but symptomatically hypoglycemic. Need adjustment of her long-acting insulin. She also needs case management to help her get a solution to her insulin pump problem. Active Problems: Diabetic Ketoacidosis Severe anion-gap metabolic acidosis Hypokalemia Hyperglycemia Type 1 Diabetes Mellitus Cardiac murmur GPC bacteremia-probable contaminant Plan: -- Off insulin drip. Anion gap has closed -- Started Levemir 10 U q12 yesterday but now with morning symptomatic hypoglycemia -- Continue Levemir 10 units a.m. would reduce evening dose to 5 units -- q2h accuchecks, electrolyte replacement and serial BMPs per protocol -- !800 ADA diet -- case management for assistance with insulin pump. -- SCDs, SQH -- Continue ICU care for now. If hypoglycemia resolves, will transfer to floor today afternoon Level 3 Mary Kay Parmar MD Aug 11, 2016 07:49 Mary Kay Parmar MD Aug 11, 2016 07:49
[2016-08-11] MEDS ORDERED: INSULIN DETEMIR 100 UNITS/ML VIAL SQ SCH ×3 (09:00→21:00)
--- NOTE | 2016-08-11 14:27 | EKG ---
Date Performed: 08/11/2016 Time Performed: 07:01:24 PTAGE: 25 years EKG: Sinus arrhythmia. Normal ECG NO PREVIOUS TRACING DOCTOR: Kristina Knight Interpretating Date/Time 08/11/2016 14:24:20
[2016-08-11 14:49] LABS: ALKALINE PHOSPHATASE 57 U/L (45-117); ALT (GPT) 19 U/L (10-53); ANION GAP 9 MEQ/L (5-15); AST (GOT) 9 U/L (15-37); BICARBONATE 23.8 MEQ/L (21.0-32.0); BLOOD UREA NITROGEN 8 MG/DL (7-18); CHLORIDE 110 MEQ/L (98-107); GLOMERULAR FILTRATION RATE 86 ML/MIN (>89); POTASSIUM 3.6 MEQ/L (3.5-5.1); SODIUM (NA) 143 MEQ/L (136-145); TOTAL BILIRUBIN ADULT 0.3 MG/DL (0.2-1.0)
[2016-08-11] MEDS: ACETAMINOPHEN 325 MG TAB PO PRN (16:43)
--- NOTE | 2016-08-11 17:35 | HHI.DS ---
Discharge Summary Admission Date Aug 09, 2016 at 08:56 Admitting Diagnosis Diabetic Ketoacidosis (1) DKA (diabetic ketoacidoses) ICD Code: E13.10 Diagnosis: Principal (2) Nonspecific chest pain ICD Code: R07.9 Diagnosis: Principal (3) Cardiac flow murmur Diagnosis: Secondary Brief History This is a 25yF with T1DM who recently changed insurance, so she has limited access to medical care at this point. Recently, her insulin pump stopped working properly and there is a part that is kinked. She was recently admitted to OS from 07/31 - 08/04 with DKA secondary to her insulin pump malfunction. She is normally a very well-controlled diabetic and does not have frequent episodes of DKA. She has no recent history of infections, cough, fever, chills, nausea, vomiting, diarrhea, shortness of breath, or chest pain. She presents with fatigue, a pH 7.1, ketonuria, ketonemia, elevated anion gap consistent with recurrent DKA. She was started on DKA protocol including K replacement, ivf, insulin drip, dextrose. Critical Care medicine is consulted to evaluate and manage her DKA and acidosis. CBC/BMP: 08/11/16 0345 08/11/16 1400 Significant Findings Laboratory Tests Test 08/09/16 08/09/16 08/09/16 08/09/16 06:55 07:08 07:20 07:55 Chloride Level 110 MEQ/L (98-107) Carbon Dioxide Level 7.3 MEQ/L (21.0-32.0) Anion Gap 22 MEQ/L (5-15) Blood Urea Nitrogen 23 MG/DL (7-18) Estimat Glomerular Filtration 75 ML/MIN (>89) Rate Random Glucose 470 MG/DL (74-106) Aspartate Amino Transf 9 U/L (15-37) (AST/SGOT) Lipase 61 U/L (73-393) B-Hydroxybutyrate 7.19 MMOL/L (0.00-0.39) Venous Blood pH 7.10 (7.360-7.400) Venous Blood Partial Pressure 21 mmHg (44-48) CO2 Venous Blood Partial Pressure 59 mmHg (35-40) O2 Venous Blood HCO3 6 mmol/L (22-26) Venous Blood Oxygen Saturation 80 % (70-76) Venous Blood Base Excess -21.8 mmol/L (-2-2) Lactic Acid Level 3.8 mmol/L (0.4-2.0) White Blood Count 27.3 TH/MM3 (4.0-11.0) Neutrophils (%) (Auto) 90.5 % (16.0-70.0) Lymphocytes (%) (Auto) 4.0 % (9.0-44.0) Neutrophils # (Auto) 24.7 TH/MM3 (1.8-7.7) Monocytes # (Auto) 1.4 TH/MM3 (0-0.9) Test 08/09/16 08/09/16 08/09/16 08/09/16 08:30 13:30 18:20 22:30 Urine Glucose (UA) 1000 mg/dL (NEG) Urine Ketones 150 mg/dL (NEG) Urine Mucus FEW /lpf (OCC) Chloride Level 115 MEQ/L 115 MEQ/L 112 MEQ/L (98-107) (98-107) (98-107) Carbon Dioxide Level 12.9 MEQ/L 16.6 MEQ/L 14.0 MEQ/L (21.0-32.0) (21.0-32.0) (21.0-32.0) Estimat Glomerular Filtration 79 ML/MIN (>89) 83 ML/MIN (>89) Rate Random Glucose 204 MG/DL 236 MG/DL 224 MG/DL (74-106) (74-106) (74-106) Calcium Level 8.1 MG/DL 7.7 MG/DL 8.0 MG/DL (8.5-10.1) (8.5-10.1) (8.5-10.1) Phosphorus Level 2.1 MG/DL 2.1 MG/DL 2.3 MG/DL (2.5-4.9) (2.5-4.9) (2.5-4.9) Hemoglobin A1c 9.9 % (4.3-6.0) Test 08/10/16 08/10/16 08/10/16 08/10/16 05:40 09:35 11:50 16:50 White Blood Count 13.2 TH/MM3 (4.0-11.0) Chloride Level 109 MEQ/L 114 MEQ/L 113 MEQ/L 116 MEQ/L (98-107) (98-107) (98-107) (98-107) Carbon Dioxide Level 10.3 MEQ/L 15.7 MEQ/L 16.6 MEQ/L 19.3 MEQ/L (21.0-32.0) (21.0-32.0) (21.0-32.0) (21.0-32.0) Anion Gap 18 MEQ/L (5-15) Random Glucose 365 MG/DL 117 MG/DL 130 MG/DL 122 MG/DL (74-106) (74-106) (74-106) (74-106) Calcium Level 8.4 MG/DL 7.9 MG/DL 7.2 MG/DL 7.2 MG/DL (8.5-10.1) (8.5-10.1) (8.5-10.1) (8.5-10.1) Phosphorus Level 1.9 MG/DL 1.9 MG/DL (2.5-4.9) (2.5-4.9) B-Hydroxybutyrate 6.41 MMOL/L 3.00 MMOL/L 3.27 MMOL/L (0.00-0.39) (0.00-0.39) (0.00-0.39) Aspartate Amino Transf 6 U/L (15-37) 7 U/L (15-37) 5 U/L (15-37) (AST/SGOT) Total Protein 5.5 GM/DL 5.0 GM/DL 4.6 GM/DL (6.4-8.2) (6.4-8.2) (6.4-8.2) Albumin 3.0 GM/DL 2.8 GM/DL 2.5 GM/DL (3.4-5.0) (3.4-5.0) (3.4-5.0) Potassium Level 3.4 MEQ/L 3.4 MEQ/L (3.5-5.1) (3.5-5.1) Protein Corrected Calcium 8.3 MG/DL (8.5-10.1) Test 08/11/16 08/11/16 03:45 14:00 Red Blood Count 3.75 MIL/MM3 (4.00-5.30) Hemoglobin 11.1 GM/DL (11.6-15.3) Hematocrit 32.0 % (35.0-46.0) Sodium Level 146 MEQ/L (136-145) Potassium Level 3.4 MEQ/L (3.5-5.1) Chloride Level 117 MEQ/L 110 MEQ/L (98-107) (98-107) Carbon Dioxide Level 20.9 MEQ/L (21.0-32.0) Blood Urea Nitrogen 5 MG/DL (7-18) Creatinine 0.45 MG/DL (0.50-1.00) Calcium Level 7.8 MG/DL 8.3 MG/DL (8.5-10.1) (8.5-10.1) Estimat Glomerular Filtration 86 ML/MIN (>89) Rate Random Glucose 282 MG/DL (74-106) Aspartate Amino Transf 9 U/L (15-37) (AST/SGOT) Total Protein 5.7 GM/DL (6.4-8.2) Albumin 3.1 GM/DL (3.4-5.0) B-Hydroxybutyrate 0.40 MMOL/L (0.00-0.39) PE at Discharge GENERAL: Young female, lying in bed, no distress. HEENT: Normocephalic. Atraumatic. Pupils equal, reactive, round, conjugate. Mucous membranes are dry. NECK: Neck is midline. No JVD. CHEST: Tachypneic. Mild distress. Clear to auscultation. CARDIOVASCULAR: NSR, regular rhythm. Grade 2-3 murmur heard predominantly at the apex and left sternal border. L chest wall tenderness at apex ABDOMEN: Soft, nontender, nondistended. No guarding. MUSCULOSKELETAL: No peripheral edema. Distal pulses 2+. NEUROLOGICAL: Follows commands in all 4 extremities. No gross focal motor or sensory deficits Hospital Course This is a 25yF with T1DM who recently changed insurance, so she has limited access to medical care at this point. Recently, her insulin pump stopped working properly and there is a part that is kinked. She was recently admitted to OSH from 07/31 - 08/04 with DKA secondary to her insulin pump malfunction. She is normally a very well-controlled diabetic and does not have frequent episodes of DKA. She has no recent history of infections, cough, fever, chills, nausea, vomiting, diarrhea, shortness of breath, or chest pain. She presents with fatigue, a pH 7.1, ketonuria, ketonemia, elevated anion gap consistent with recurrent DKA. She was started on DKA protocol including K replacement, ivf, insulin drip, dextrose. Critical Care medicine is consulted to evaluate and manage her DKA and acidosis. SUBJ 08/10/16: Patient remains slightly nauseated and on gap has reopened now 18 beta hydroxybutyrate increased to 6.4 after coming off the insulin drip. I have received the DKA protocol with restarting insulin infusion. We'll start long-acting insulin Levemir anticipating transition to soon 08/11/16: Off DKA protocol, On Levemir and sliding scale now. Became symptomatically hypoglycemic today, with blood sugar 65. Now symptoms resolved. i have reduced evening Levemir to 5. Blood culture staph epi. 2-D echo no valvular abnormalities noted. Still has grade 2-3 murmur at the apex Intermittent elevated blood sugar controlled with SSI. Patient insists on going home. Will dc with insulin prescription. She is to make appointment with grant officer. A nuclear stress test which was scheduled apparently was not done. Patient to make appointment with [facility] cardiovascular service line as well Pt Condition on Discharge: Fair Discharge Disposition: Discharge Home Discharge Instructions DIET: Follow Instructions for: Diabetic Diet Activities you can perform: Regular-No Restrictions Additional Information Levemir 5 Units am and 10 units q hs Humalog 5 units prior to each meal Humalog sliding scale as instructed Patient to make appointment to grant officer and [facility] cardiovascular service line if chest pain persists Mary Kay Parmar MD Aug 11, 2016 17:35
--- NOTE | 2016-08-13 08:44 | PD ---
Physical Exam Date Seen by Provider: Aug 09, 2016 Time Seen by Provider: 06:45 Data Data Last Documented VS Vital Signs Date Time Temp Pulse Resp B/P Pulse Ox O2 Delivery O2 Flow Rate FiO2 08/09/16 07:30 111 125/57 100 Room Air Orders Disability Benefits Specialist / Telemetry [id number] (08/09/16 06:04) ^ Insert Iv (08/09/16 06:04) Lipase (08/09/16 06:04) Complete Blood Count With Diff (08/09/16 06:04) Comprehensive Metabolic Panel (08/09/16 06:04) Magnesium (Mg) (08/09/16 06:04) Phosphorus (Po4) (08/09/16 06:04) Beta Hydroxybutyrate (Acetone) (08/09/16 06:04) Sodium Chlor 0.9% 1000 Ml Inj (Ns 1000 M (08/09/16 06:04) Sodium Chlor 0.9% 1000 Ml Inj (Ns 1000 M (08/09/16 06:04) Dext 5%-Nacl 0.9% 1000 Ml Inj (D5w-Ns 10 (08/09/16 06:04) Insulin Regular (Iv Infusion) (Novolin R (08/09/16 06:15) Potassium Chlor 20 Meq Premix (Kcl 20 Me (08/09/16 06:15) Potassium Chlor 20 Meq Premix (Kcl 20 Me (08/09/16 06:15) Potassium Chlor 20 Meq Premix (Kcl 20 Me (08/09/16 06:15) Potassium Chlor 20 Meq Premix (Kcl 20 Me (08/09/16 06:15) Sodium Bicarbonate 8.4% Inj (Sodium Bica (08/09/16 06:15) Sodium Bicarbonate 8.4% Inj (Sodium Bica (08/09/16 06:15) Sodium Phosphate Inj (Sodium Phosphate I (08/09/16 06:15) Hemoglobin (Hgb) A1c (08/09/16 06:04) Urinalysis - C+S If Indicated (08/09/16 06:04) Basic Metabolic Panel (Bmp) (08/09/16 11:04) Basic Metabolic Panel (Bmp) (08/09/16 17:04) Basic Metabolic Panel (Bmp) (08/09/16 23:04) Basic Metabolic Panel (Bmp) (08/10/16 05:04) Magnesium (Mg) (08/09/16 11:04) Magnesium (Mg) (08/09/16 17:04) Magnesium (Mg) (08/09/16 23:04) Magnesium (Mg) (08/10/16 05:04) Phosphorus (Po4) (08/09/16 11:04) Phosphorus (Po4) (08/09/16 17:04) Phosphorus (Po4) (08/09/16 23:04) Phosphorus (Po4) (08/10/16 05:04) Beta Hydroxybutyrate (Acetone) (08/09/16 17:04) Beta Hydroxybutyrate (Acetone) (08/10/16 05:04) Chest, Single Ap (08/09/16 ) Ondansetron Inj (Zofran Inj) (08/09/16 06:21) Blood Culture (08/09/16 07:05) Lactic Acid (08/09/16 07:05) Blood Gas Venous (Vbg) (08/09/16 07:08) Insulin Human Regular Inj (Novolin R Inj (08/09/16 08:30) Inpatient Certification (08/09/16 08:50) Admit Order (Ed Use Only) (08/09/16 08:54) Labs Laboratory Tests Test 08/09/16 08/09/16 08/09/16 08/09/16 06:55 07:08 07:20 07:55 Sodium Level 139 MEQ/L Potassium Level 4.9 MEQ/L Chloride Level 110 MEQ/L Carbon Dioxide Level 7.3 MEQ/L Anion Gap 22 MEQ/L Blood Urea Nitrogen 23 MG/DL Creatinine 0.93 MG/DL Estimat Glomerular Filtration 75 ML/MIN Rate Random Glucose 470 MG/DL Calcium Level 8.6 MG/DL Phosphorus Level 4.3 MG/DL Magnesium Level 2.1 MG/DL Total Bilirubin 0.7 MG/DL Aspartate Amino Transf 9 U/L (AST/SGOT) Alanine Aminotransferase 20 U/L (ALT/SGPT) Alkaline Phosphatase 68 U/L Total Protein 6.6 GM/DL Albumin 4.0 GM/DL Lipase 61 U/L B-Hydroxybutyrate 7.19 MMOL/L Blood Gas Puncture Site CL Blood Gas Patient Temperature 98.6 Venous Blood pH 7.10 Venous Blood Partial Pressure 21 mmHg CO2 Venous Blood Partial Pressure 59 mmHg O2 Venous Blood HCO3 6 mmol/L Venous Blood Oxygen Saturation 80 % Venous Blood Oxygen Content 13.8 Vol % Venous Blood Base Excess -21.8 mmol/L Oxygen Delivery Device RA Lactic Acid Level 3.8 mmol/L White Blood Count 27.3 TH/MM3 Red Blood Count 4.30 MIL/MM3 Hemoglobin 13.0 GM/DL Hematocrit 39.4 % Mean Corpuscular Volume 91.5 FL Mean Corpuscular Hemoglobin 30.2 PG Mean Corpuscular Hemoglobin 33.0 % Concent Red Cell Distribution Width 13.3 % Platelet Count 331 TH/MM3 Mean Platelet Volume 8.7 FL Neutrophils (%) (Auto) 90.5 % Lymphocytes (%) (Auto) 4.0 % Monocytes (%) (Auto) 5.2 % Eosinophils (%) (Auto) 0.0 % Basophils (%) (Auto) 0.3 % Neutrophils # (Auto) 24.7 TH/MM3 Lymphocytes # (Auto) 1.1 TH/MM3 Monocytes # (Auto) 1.4 TH/MM3 Eosinophils # (Auto) 0.0 TH/MM3 Basophils # (Auto) 0.1 TH/MM3 CBC Comment DIFF FINAL Differential Comment Test 08/09/16 08:30 Urine Color LIGHT-YELLOW Urine Turbidity CLEAR Urine pH 5.0 Urine Specific [place] 1.023 Urine Protein TRACE mg/dL Urine Glucose (UA) 1000 mg/dL Urine Ketones 150 mg/dL Urine Occult Blood NEG Urine Nitrite NEG Urine Bilirubin NEG Urine Urobilinogen LESS THAN 2.0 MG/DL Urine Leukocyte Esterase NEG Urine Mucus FEW /lpf Microscopic Urinalysis Comment CULT NOT INDICATED MDM Supervised Visit with GRISEL: No Procedures Procedure Narrative CENTRAL LINE: Patient verbally consented to right IJ access after risk of infection, carotid injury and pneumothorax were discussed. Patient has need of emergent large bore access. Multiple attempts at peripheral access made by myself and nursing and yielded one peripheral 20g without lab being obtained. Patient prepped with chlorhexidine, fully draped, full barrier (hat, mask, gown , glove) used. US probe sterilly draped. Patient right IJ identified, patient in Trendelenburg. Patient IJ very collapsable with needle but on second attempt a needle was passed into the right IJ yielding dark red non-pulsatile blood. J wire passed with minimal difficulty, needle removed, skin kasey, dilator and then 7fr triple lumen passed, wire removed. Secured with suture. All three ports tobin back and flushed easily. CXR confirmed good placement and no pneumothorax. Diagnosis Primary Impression: DKA (diabetic ketoacidoses) Qualified Code: E10.10 - Diabetic ketoacidosis without coma associated with type 1 diabetes mellitus Patient Instructions: Diabetic Ketoacidosis (ED) Condition: Critical Fahad Smith MD Aug 13, 2016 08:44
== END 2016-08-11 18:30 | disposition home or self-care (01) | DRG 919 ==
LOC: NEPC 05:54 → NEDA 08:56 → NEDH 13:03 → HIMN 16:00
PROVIDERS: ADMIT Internal Medicine; ATTEND Internal Medicine
PROC: 02HV33Z Insertion of Infusion Device into Superior Vena Cava, Percutaneous Approach (ICD-10-PCS; principal; 2016-08-09)
DX: T85.694A Other mechanical complication of insulin pump, initial encounter (principal); E10.10 Type 1 diabetes mellitus with ketoacidosis without coma; E10.649 Type 1 diabetes mellitus with hypoglycemia without coma; E86.0 Dehydration; E87.6 Hypokalemia; J45.909 Unspecified asthma, uncomplicated; R01.1 Cardiac murmur, unspecified; Z79.4 Long term (current) use of insulin; Y74.2 Prosthetic and other implants, materials and accessory general hospital and personal-use devices associated with adverse incidents
CPT/HCPCS: 71010; 80048; 80053; 81001; 82010; 82805; 82948; 83036; 83605; 83690; 83735; 84100; 84439; 84443; 84481; 85025; 85027; 86403; 87040; 87077; 87186; 87205; 87641; 93005; 93306; 94150; 94640; 94667; 94668; 96361; 96365; 96368; 96374; J1815; J1817; J2405; J3370; J3480; J7030; J7042; J7050; J7120